=== PATIENT | male | born 2000 | race Caucasian/White ===

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

== ENCOUNTER 2022-07-03 19:23 | Emergency (ER) | payer MEDICAID, OTHER ==
[2022-07-03] MEDS ORDERED: Sodium Chloride 0.9% 1,000 ML IV ONE (20:26)
[2022-07-03] MEDS ORDERED: Ketorolac 30 MG/ML SDV IVPUSH ONE (20:26)
[2022-07-03 20:59] LABS: CORONAVIRUS COVID-19 NAA NEGATIVE (NEGATIVE); INFLUENZA A NAA POSITIVE (NEGATIVE); INFLUENZA B NAA NEGATIVE (NEGATIVE); RESPIRATORY SYNCYTIAL VIR NAA NEGATIVE (NEGATIVE)
[2022-07-03 21:14] LABS: CARBON DIOXIDE,CO2 27.6 mmol/L (21.0-32.0); POTASSIUM,K 3.3 mmol/L (3.5-5.1)
[2022-07-03 21:47] VITALS: BP 131/61; PULSE 90
== END 2022-07-03 21:39 | disposition home or self-care (01) ==
LOC: MW.ED 19:23
DX: J10.1 Influenza due to other identified influenza virus with other respiratory manifestations (principal); R74.01 Elevation of levels of liver transaminase levels; Z88.0 Allergy status to penicillin; Z20.822 Contact with and (suspected) exposure to COVID-19
CPT/HCPCS: 0241U; 36415; 80053; 85025; 96361; 96374; 99283; J1885; J7030